=== PATIENT | male | born 1965 | race American Indian/Alaskan Native ===

== ENCOUNTER 2025-03-14 07:48 | Observation (INO) ==
[2025-02-28 12:26] LABS: Basophils # (Auto) 0.03 K/mcL (0.00-0.30); Basophils % (Auto) 0.3 % (0.0-2.0); Eosinophils # (Auto) 0.27 K/mcL (0.00-0.70); Eosinophils % (Auto) 2.8 % (0.0-7.0); Hematocrit 46.1 % (40.1-51.0); Hemoglobin 14.5 g/dL (13.7-17.5); Lymphocytes # (Auto) 2.40 K/mcL (1.50-4.80); Lymphocytes % (Auto) 24.7 % (15.5-49.0); Mean Corpuscular HGB Conc 31.5 g/dL (31.0-36.0); Monocytes # (Auto) 0.78 K/mcL (0.10-0.90); Monocytes % (Auto) 8.0 % (1.0-12.0); Neutrophils % (Auto) 63.5 % (38.0-78.0); Platelet Count 259 K/mcL (140-440); RBC 5.02 M/mcL (4.63-6.08); WBC 9.7 K/mcL (4.5-11.0)
[2025-02-28 12:42] LABS: ALT/SGPT 15 U/L (<40); AST/SGOT 16 U/L (<40); Albumin 4.1 gm/dL (3.2-5.2); Albumin/Globulin Ratio 1.3 (1.0-2.3); Alkaline Phosphatase 62 U/L (39-117); Anion Gap 10.0 (8.0-16.0); Bilirubin,Total 0.5 mg/dL (0.1-1.0); Blood Urea Nitrogen 17 mg/dL (6-20); Calcium 9.5 mg/dL (8.6-10.4); Carbon Dioxide 25 mmol/L (22-30); Chloride 104 mmol/L (96-108); Globulin 3.1 gm/dL (2.2-3.7); Glucose 101 mg/dL (70-105); Potassium 4.2 mmol/L (3.3-5.1); Sodium 139 mmol/L (133-145)
[2025-02-28 13:09] LABS: INR 1.1 (0.9-1.1); Prothrombin Time 14.5 sec (11.9-14.5)
[2025-02-28 15:26] LABS: Estimated Average Glucose(eAG) 126 mg/dL; Hemoglobin A1C 6.0 % Hgb (4.0-6.0)
[2025-02-28 16:25] LABS: Bilirubin,Urine Negative (Negative); Color,Urine YELLOW; Glucose,Urine (UA) Negative (Negative); Ketones,Urine Negative (Negative); Leukocyte Esterase,Urine Negative /uL (Negative); PH,Urine 5.0 (5.0-9.0); Protein,Urine Negative (Negative); Specific Gravity,Urine 1.020 (1.000-1.035); Urobilinogen,Urine Negative
[~2025-03-14 07:48] MED LIST: 0.9 % SODIUM CHLORIDE 9 ML, KETOROLAC 30 MG, ROPIVACAINE HCL/PF 49.5 ML, EPINEPHrine 0.... IJ SCH; DEXAMETHASONE 10 MG/ML VIAL ONE; LIDOCAINE 2% PF 5 ML VIAL ONE; MAGNESIUM SULFATE 2 GM/50 ML BAG IV ONE; ONDANSETRON 4 MG/2 ML VIAL ONE; PROPOFOL 200 MG/20 ML VIAL IV ONE; TRANEXAMIC ACID 1,000 MG/10 ML VIAL ONE
[2025-03-14] MEDS: ACETAMINOPHEN 500 MG TABLET PO SCH (08:22)
[2025-03-14] MEDS: oxyCODONE 10 MG TAB.ER.12H PO SCH (08:22)
[2025-03-14] MEDS: CELECOXIB 200 MG CAPSULE PO SCH (08:23)
[2025-03-14] MEDS: PREGABALIN 75 MG CAPSULE PO SCH (08:23)
[2025-03-14] MEDS: ceFAZolin 3 GM in DEXTROSE 5% IN WATER 50 ML IV SCH (08:47)
[2025-03-14] MEDS ORDERED: PHENYLephrine 1 MG/10 ML SYRINGE (ANEST) ONE (08:52)
[2025-03-14] MEDS ORDERED: SUCCINYLCHOLINE 200 MG/10 ML VIAL IV ONE (09:17)
[2025-03-14] MEDS ORDERED: FAMOTIDINE/PF 20 MG/2 ML VIAL IV ONE (09:20)
[2025-03-14] MEDS ORDERED: PROPOFOL 200 MG/20 ML VIAL IV ONE (09:28)
[2025-03-14] MEDS ORDERED: HYDROmorphone 0.5 MG/0.5 ML SYRINGE IV PRN (10:23)
[2025-03-14] MEDS ORDERED: IPRATROPIUM/ALBUTEROL 3 ML AMPUL.NEB NEB PRN (10:23)
[2025-03-14] MEDS ORDERED: TEMAZEPAM 15 MG CAPSULE PO PRN (10:35)
[2025-03-14] MEDS ORDERED: BENZOCAINE/MENTHOL 1 LOZENGE PO PRN (10:35)
[2025-03-14] MEDS ORDERED: ONDANSETRON 4 MG/2 ML VIAL IV PRN (10:35)
[2025-03-14] MEDS: TRANEXAMIC ACID 1,000 MG/10 ML VIAL IV ONE (10:58)
[2025-03-14] MEDS: 0.9 % SODIUM CHLORIDE 1,000 ML IV SCH (12:02)
[2025-03-14] MEDS: HYDROcodone/APAP 10/325MG TABLET PO PRN (16:06)
[2025-03-14] MEDS: 0.9 % SODIUM CHLORIDE 10 ML SYRINGE IV SCH (16:10)
[2025-03-14] MEDS: ASPIRIN 81 MG TAB.CHEW CHEWED SCH (20:06)
[2025-03-14] MEDS: DOCUSATE SODIUM 100 MG CAPSULE PO SCH (20:06)
[2025-03-14] MEDS: LISINOPRIL 10 MG TABLET PO SCH (20:07)
[2025-03-14] MEDS ORDERED: MAGNESIUM GLYCINATE 100 MG PO SCH (21:00)
[2025-03-15] MEDS: ACETAMINOPHEN 325 MG TABLET PO PRN (00:13)
[2025-03-15] MEDS: KETOROLAC 15 MG/ML VIAL IV PRN (00:43)
[2025-03-15] MEDS: CALCIUM W/VIT D3 500 MG TABLET PO SCH (08:19)
[2025-03-15] MEDS ORDERED: POTASSIUM GLUCONATE PO SCH (09:00)
[2025-03-15] MEDS ORDERED: VITAMIN D3 VITAMIN K2 PO SCH (09:00)
[2025-03-15] MEDS ORDERED: [UNRECOGNIZED DRUG - OTHER] PO SCH (09:00)
[2025-03-15] MEDS: 0.9 % SODIUM CHLORIDE 250 ML IV SCH (15:30)
[2025-03-16] MEDS: MAGNESIUM HYDROXIDE 30 ML ORAL.SUSP PO PRN (09:15)
== END 2025-03-16 11:30 | disposition home health service (06) ==
LOC: MEDSUR 07:48 → SUR 07:48 → MEDSUR 11:33
PROVIDERS: ADMIT Orthopaedic Surgery; ATTEND Orthopaedic Surgery